=== PATIENT | male | born 1960 | race Caucasian/White ===

== ENCOUNTER 2017-11-06 07:03 | Day surgery (SDC) | payer OTHER ==
[~2017-11-06 07:03] MED LIST: CITA20 PO; CLON.5 PO; INSLIS75I; ZOLP10 PO; [UNRECOGNIZED DRUG - REMARK]
== END 2017-11-06 22:53 | disposition home or self-care (01) ==
LOC: ORSCMMR 07:03
PROVIDERS: Internal Medicine Gastroenterology
PROC: 0DBK8ZX Excision of Ascending Colon, Via Natural or Artificial Opening Endoscopic, Diagnostic (ICD-10-PCS; principal; 2017-11-06 08:00)
PROC: 0DBN8ZX Excision of Sigmoid Colon, Via Natural or Artificial Opening Endoscopic, Diagnostic (ICD-10-PCS; principal; 2017-11-06 08:00)
DX: Z12.11 Encounter for screening for malignant neoplasm of colon (principal); D12.2 Benign neoplasm of ascending colon; K63.5 Polyp of colon; Z86.010 Personal history of colon polyps; E78.00 Pure hypercholesterolemia, unspecified; E03.9 Hypothyroidism, unspecified; F41.9 Anxiety disorder, unspecified; I10 Essential (primary) hypertension; F17.210 Nicotine dependence, cigarettes, uncomplicated; Z79.899 Other long term (current) drug therapy
CPT/HCPCS: 88305; J7120

== ENCOUNTER 2023-01-30 08:39 | Day surgery (SDC) | payer OTHER ==
[2023-01-30] VITALS (19 sets, daily range): BP systolic 101–144; BP diastolic 55–83
[~2023-01-30] VITALS: Ht 175.3 cm; Wt 77.7 kg
[~2023-01-30 08:39] MED LIST changes: +ASPI81CH PO; +CLON1 PO; +Crestor20 MG PO; +EUTHYROX50 MCG PO; +GABA300 PO; +METO25 PO
--- NOTE | 2023-01-30 09:18 | NUR ---
Ambulatory in Day Surgery History, Chart, Medications and Allergies reviewed before start of procedure.Patient confirms NPO status and agrees with scheduled surgery. Pre-Op teaching done. Pt verbalizes understanding. Patient States Post-Procedure ride home has been arranged.
--- NOTE | 2023-01-30 09:38 | NUR ---
01/30/23 0938 Kerline Dixon HISTORY, CHART, MEDICATIONS AND ALLERGIES REVIEWED BEFORE START OF PROCEDURE. PATIENT CONFIRMS NPO STATUS AND AGREES WITH SCHEDULED PROCEDURE. 3-LEAD EKG REVIEWED WITH PHYSICIAN PRIOR TO START OF PROCEDURE. MONITOR INTACT WITH CONTINUOUS PULSE OXIMETRY,CAPNOGRAPHY, 3-LEAD EKG, INTERMITTENT BP. SUPPLEMENTAL O2 TO BE TITRATED THROUGHOUT PROCEDURE TO MAINTAIN O2 SATURATION ABOVE 90%. PATIENT DETERMINED TO BE ASA APPROPRIATE FOR PROPOFOL SEDATION PRIOR TO START OF PROCEDURE BY DR. DAILY. MALLAMPATI CLASS 1 AIRWAY: COMPLETE VISULATIZATION OF THE SOFT PALATE.
--- NOTE | 2023-01-30 10:41 | NUR ---
Discharge instructions reviewed with patient. Patient verbalizes understanding. Copy given to patient to take home. Patient States Post-Procedure ride home has been arranged. Discharged via wheelchair to private car for ride home.
== END 2023-01-30 22:50 | disposition home or self-care (01) ==
LOC: ORSCMMR 08:39 → ORD 09:30 → ORSCMMR 09:30
PROVIDERS: Internal Medicine Gastroenterology
PROC: 0DBH8ZX Excision of Cecum, Via Natural or Artificial Opening Endoscopic, Diagnostic (ICD-10-PCS; principal; 2023-01-30 09:30)
PROC: 0DBM8ZX Excision of Descending Colon, Via Natural or Artificial Opening Endoscopic, Diagnostic (ICD-10-PCS; principal; 2023-01-30 09:30)
PROC: 0DBN8ZX Excision of Sigmoid Colon, Via Natural or Artificial Opening Endoscopic, Diagnostic (ICD-10-PCS; principal; 2023-01-30 09:30)
PROC: 0DBL8ZX Excision of Transverse Colon, Via Natural or Artificial Opening Endoscopic, Diagnostic (ICD-10-PCS; principal; 2023-01-30 09:30)
DX: Z12.11 Encounter for screening for malignant neoplasm of colon (principal); Z86.010 Personal history of colon polyps; K63.5 Polyp of colon; Z85.46 Personal history of malignant neoplasm of prostate; I25.10 Atherosclerotic heart disease of native coronary artery without angina pectoris; Z79.899 Other long term (current) drug therapy; Z79.82 Long term (current) use of aspirin
CPT/HCPCS: 88305; J2704; J7120

== ENCOUNTER 2023-03-22 16:47 | Inpatient (IN) | payer OTHER ==
[~2023-03-22] VITALS: Ht 175.3 cm; Wt 73.3 kg
[2023-03-22 17:26] LABS: BASOPHILS ABSOLUTE AUTO 0.04 K/mm3 (0.00-0.23); BASOPHILS PERCENT AUTO 1 % (0-2); EOSINOPHILS ABSOLUTE AUTO 0.09 K/mm3 (0.00-0.68); EOSINOPHILS PERCENT AUTO 1 % (0-6); Hemoglobin 16.8 g/dL (13.5-17.5); IMMATURE GRAN ABSOLUTE AUTO 0.02 K/mm3 (0.00-0.10); IMMATURE GRAN PERCENT AUTO 0 % (0-1); LYMPHOCYTES ABSOLUTE AUTO 2.32 K/mm3 (0.84-5.20); LYMPHOCYTES PERCENT AUTO 28 % (21-46); MONOCYTES ABSOLUTE AUTO 0.46 K/mm3 (0.16-1.47); MONOCYTES PERCENT AUTO 6 % (4-13); Mean Corpuscular HGB 29.3 pg (26.0-34.0); Mean Corpuscular HGB Conc 34.3 g/dL (31.5-36.5); Mean Corpuscular Volume 85 fL (80-100); NEUTROPHILS ABSOLUTE AUTO 5.33 K/mm3 (1.96-9.15); NEUTROPHILS PERCENT AUTO 65 % (41-73); Platelet Count 237 K/mm3 (150-400); RDW Coefficient Variation 13.2 % (11.7-14.2); RDW Standard Deviation 41.1 fL (35.1-46.3); Red Blood Cell Count 5.74 M/mm3 (4.30-5.90); White Blood Cell Count 8.26 K/mm3 (4.00-11.30)
[2023-03-22 17:59] LABS: Albumin, Blood 3.8 g/dL (3.4-5.0); Albumin/Globulin Ratio 1.1 (0.8-1.8); Bilirubin, Total 0.6 mg/dL (0.1-1.0); Calcium, Blood 9.4 mg/dL (8.5-10.1); Creatinine, Blood 0.93 mg/dL (0.60-1.20); Globulin, Blood 3.5 g/dL (2.2-4.0); Potassium, Blood 4.1 mmol/L (3.5-5.5); Total Protein, Blood 7.3 g/dL (6.4-8.2)
[2023-03-22 18:07] LABS: CHOL/HDL RATIO 2.8; Cholesterol 98 mg/dL (50-200); HDL Cholesterol 35 mg/dL (>39); LDL/HDL RATIO 1.2; Low Density Lipoprotein Chol 43 mg/dL (0-110); Triglycerides 102 mg/dL (30-160); Very Low Density Lipoprot Chol 20 mg/dL (6-32)
[2023-03-22 18:25] LABS: International Normalized Ratio 1.14; Prothrombin Time Results 11.9 Sec (9.7-11.5)
[2023-03-22] MEDS ORDERED: ZOLP10 PO (21:57)
[2023-03-22 23:59] VITALS: BP 97/58
[2023-03-23] VITALS (11 sets, daily range): BP systolic 102–162; BP diastolic 45–98
--- NOTE | 2023-03-23 06:22 | NUR ---
Assumed care of pt at 2056 as an ER admit for [facility]. A/Ox4, cooperative with care and calls appropriately. Independent in room. C/o 2-3/10 R chest wall pain described as an aching. At end of shift patient c/o pain inbetween shoulder blades with chest tightness but was able to return back to sleep. 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 Maintains over 95% on RA. Sinus Malik in the 40's, asymptommatic. NPO since MN, Heparin gtt going per emar. Will report to lou SOTELO.
--- NOTE | 2023-03-23 09:24 | NUR ---
PT TO PROPERTY PRESERVATION SPECIALIST, HEPARIN INFUSING
--- NOTE | 2023-03-23 10:30 | NUR ---
TR BAND IN PLACE TO RT WRIST POST ANGIOGRAM NO ACTIVE BLEEDING NOTED. DENIES NUMBNESS OR TINGLING TO HAND, FULL ROM OF FINGERS, <3 SEC CAP REFILL. SPO2 <97% ON RT HAND.
--- NOTE | 2023-03-23 11:45 | NUR ---
ATTEMPTED TR BAND RECOVERY AT 1 HR PER RECOMMENDATION FO ELECTRIC GAS APPLIANCES DEMONSTRATOR, REMOVED 2ML AIR FORM BAND WITH WITH BLEEDING NOTED, 3ML AIR RETURNED TO BAND. BLEEDING CONTROLLED, THIS IS CONFIRMED BY ADDITIONAL RN ASHLEY. RADIAL PULSES INTACT, WITH INTACT SENSATION OF FINGERS, <3 CAP REFILL.
[2023-03-23] MEDS ORDERED: METO25ER PO (14:24)
[2023-03-23] MEDS ORDERED: Isosorbide Mono30 MG PO (14:24)
--- NOTE | 2023-03-23 14:37 | NUR ---
Pt is sitting up in chair, alert, oriented and pleasantly conversant with visitor in the room. TR band deflated by 3 cc, slowly, without any change to the site from previous assessment. The pt stated that his thumb has been feeling numb since the angiogram. Noted that time of TR band placement was 1005 am. TR band was slowly deflated completely, over the next 10 minutes, without any evidence of bleeding, hemotoma. Pt states that the sensation was starting to return to his thumb. Strict instructions given to the pt with regard to activity restrictions and keeping the white immoblizer board on to prevent any bleeding at the radial access site. He verbalized understanding of this.
--- NOTE | 2023-03-23 17:32 | NUR ---
PT DID REPORT SOME NUMBNESS TO RT THUMB AT DC, DR LANGSTON WAS CONSULTED. PT WAS MONITORED FOR AWHILE AND STS THAT FEELING WAS RETURNING TO THUMB. CAP REFILL REMAINED >3 SECONDS, GOOD ROM OF FINGERS.
--- NOTE | 2023-03-23 17:42 | NUR ---
PT DC TO HOME. PT AND FAMILY EXPRESSED UNDERSTANDING OF DC TEACHING AND DENIED FURTHER NEEDS. IVs REMOVED AND PRESSURE DRESSED.
--- NOTE | 2023-03-23 17:43 | NUR ---
NO ACTIVE BLEEDING FROM RECOVERED TR BAND SITE UPON D/C
--- NOTE | 2023-03-26 11:22 | NUR ---
[facility] f/u call after d/c. Referral received during pt's brief hospital stay this weekend due to his request to complete an advanced directive. T/c to pt on primary cell ph# listed in demographics. Spoke to pt re: AD and POLST forms, explained and answered questions. Pt would like to complete still. Blank forms and additional information, contact info/card mailed to pt at his verified home address. Instructed POLST to be reviewed and completed with his primary care provider and that it should be in agreement with his AD once completed. Pt has CAD and chronic angina. He was admitted with unstable angina and med adjustments were made per cardiology for improved angina s/s control.
== END 2023-03-23 17:01 | disposition home or self-care (01) | DRG 287 ==
LOC: ER 16:47 → PCU 20:20
PROVIDERS: Emergency Medicine; Physician Assistant; ADMIT Nurse Practitioner Acute Care
PROC: 4A023N7 Measurement of Cardiac Sampling and Pressure, Left Heart, Percutaneous Approach (ICD-10-PCS; principal; 2023-03-23)
PROC: B2111ZZ Fluoroscopy of Multiple Coronary Arteries using Low Osmolar Contrast (ICD-10-PCS; 2023-03-23)
DX: I25.110 Atherosclerotic heart disease of native coronary artery with unstable angina pectoris (principal); I10 Essential (primary) hypertension; E78.5 Hyperlipidemia, unspecified; J44.9 Chronic obstructive pulmonary disease, unspecified; E03.9 Hypothyroidism, unspecified; R73.03 Prediabetes; G89.29 Other chronic pain; M54.9 Dorsalgia, unspecified; F41.9 Anxiety disorder, unspecified; G47.00 Insomnia, unspecified; M25.569 Pain in unspecified knee; F17.210 Nicotine dependence, cigarettes, uncomplicated; I25.2 Old myocardial infarction; Z79.890 Hormone replacement therapy; Z88.5 Allergy status to narcotic agent; Z91.030 Bee allergy status; Z85.46 Personal history of malignant neoplasm of prostate; Z86.16 Personal history of COVID-19; Z79.82 Long term (current) use of aspirin; Z79.899 Other long term (current) drug therapy
CPT/HCPCS: 36415; 71275; 76937; 80053; 80061; 83036; 83880; 84484; 85025; 85520; 85610; 85730; 93005; 93010; 93306; 93454; 96374-59; 99152; 99285-25; A9270; C1769; C1887; C1894; J1644; J2250; J3010; J7030; J7050; J7120; Q9967